=== PATIENT | male | born 1980 | race American Indian/Alaskan Native ===

== ENCOUNTER 2021-10-03 09:13 | Outpatient (CLI) | payer OTHER ==
--- NOTE | 2021-10-03 11:35 | XRay Report ---
CHEST 2 VIEWS INDICATION / CLINICAL INFORMATION: Dyspnea. COMPARISON: None available. FINDINGS: SUPPORT DEVICES: None. HEART / MEDIASTINUM: The heart size is normal. There is mild prominence of the main pulmonary artery and both central pulmonary arteries on the PA view without definite abnormality on the lateral view. The peripheral pulmonary vasculature is normal. LUNGS / PLEURA: No significant pulmonary or pleural abnormality. No pneumothorax. ADDITIONAL FINDINGS: No significant additional findings. IMPRESSION: Mild nonspecific prominence of the central pulmonary arteries raises the possibility of p ulmonary arterial hypertension. Signer Name: Nahun Collins MD Signed: 10/03/2021 11:30 AM Workstation Name: [id number]
== END 2021-10-03 09:14 | disposition home or self-care (01) ==
LOC: XRAY 09:13
PROVIDERS: ATTEND Internal Medicine Hematology & Oncology
DX: I27.20 Pulmonary hypertension, unspecified (principal); R06.00 Dyspnea, unspecified
CPT/HCPCS: 71046

== ENCOUNTER 2021-12-26 10:15 | Outpatient (CLI) | payer OTHER ==
--- NOTE | 2021-12-26 11:14 | XRay Report ---
CHEST 2 VIEWS INDICATION: HYPERTENSION/PUNEMONIA. COMPARISON: 10/03/2021 FINDINGS: Support devices: None. Heart: Within normal limits. Slightly prominent central pulmonary arteries are again noted. Lungs/pleura: No acute air space or interstitial disease. No pleural abnormality or pneumothorax. Additional findings: None. IMPRESSION: No acute findings. No change since 10/03/2021. Signer Name: Mele Brewster Jr, MD Signed: 12/26/2021 11:10 AM Workstation Name: [id number]
== END 2021-12-26 10:16 | disposition home or self-care (01) ==
LOC: XRAY 10:15
PROVIDERS: ATTEND Internal Medicine Hematology & Oncology
DX: J18.9 Pneumonia, unspecified organism (principal); I10 Essential (primary) hypertension
CPT/HCPCS: 71046

== ENCOUNTER 2022-01-17 11:00 | Outpatient (CLI) | payer OTHER | END 2022-01-18 11:00 | disposition home or self-care (01) | LOC: SLR 11:00 | PROVIDERS: ATTEND Internal Medicine | DX: G47.33 Obstructive sleep apnea (adult) (pediatric) (principal); R40.0 Somnolence; I10 Essential (primary) hypertension; E66.9 Obesity, unspecified | CPT/HCPCS: G0399 ==

== ENCOUNTER → 2022-03-19 | Outpatient (CLI) | payer OTHER | END | disposition home or self-care (01) | LOC: SLR 11:00 | PROVIDERS: ATTEND Internal Medicine | DX: G47.33 Obstructive sleep apnea (adult) (pediatric) (principal) | CPT/HCPCS: 95811 ==

== ENCOUNTER 2022-05-15 08:17 | Outpatient (CLI) | payer OTHER ==
[2022-05-15 09:42] LABS: Blood Urea Nitrogen 19 mg/dL (9-20)
--- NOTE | 2022-05-15 10:34 | Cat Scan Report ---
CTA CHEST WITH CONTRAST INDICATION / CLINICAL INFORMATION: I27.81 I26.99. Abnormal echocardiogram. Cor pulmonale TECHNIQUE: Axial CT images were obtained through the chest after injection of 100 cc of Omnipaque 350 IV contrast. 3 plane MIP and/or 3D reconstructions were produced. All CT scans at this location are performed using CT dose reduction for ALARA by means of automated exposure control. COMPARISON: None available. FINDINGS: PULMONARY EMBOLUS: A small occlusive pulmonary embolus is identified in a segmental and subsegmental arteries leading to the posterior left lower lobe. A small nonocclusive pulmonary embolus is identifi ed in an interlobar artery leading to the right lower lobe. No additional pulmonary emboli are detect ed. The main pulmonary artery is dilated up to 4.4 cm in diameter. The right atrium and right ventric le are dilated consistent with right heart strain. THORACIC AORTA: The thoracic aorta is small in size. The ascending aorta measures 2.6 cm in diameter. The descending thoracic aorta measures 2.1 cm in diameter. No evidence for aneurysm, atherosclerotic disease or dissection. HEART: There is mild cardiomegaly. Right atrial and right ventricular dilatation is again noted. CORONARY ARTERY CALCIFICATION: Absent -- None. MEDIASTINUM / JEROME: No significant abnormality. PLEURA: No pleural effusion. No pneumothorax. LUNGS: Mild groundglass infiltration is identified in the lower lobes and left perihilar region which probably represents mild congestive changes. There is no evidence for consolidation or mass. No inte rstitial lung disease. ADDITIONAL FINDINGS: None. UPPER ABDOMEN: No acute findings. SKELETAL STRUCTURES: No significant osseous abnormality. IMPRESSION: 1. Positive for small bilateral pulmonary emboli as described. Right heart strain is suspected. The m ain pulmonary artery is dilated up to 4.4 cm. 2. Mild bilateral groundglass infiltrates likely representing congestive changes. 3. Mild cardiomegaly. CRITICAL RESULT: Time of Discovery (CONGREGATIONAL CARE PASTOR/CDT): 0855 hours Time of Communication (CONGREGATIONAL CARE PASTOR/CDT): 0907 hours Licensed Practitioner Receiving Report: HILARIO Kramer Read-Back Performed: Yes. The patient was sent to the emergency department for further evaluation. Signer Name: Mele Brewster Jr, MD Signed: 05/15/2022 10:30 AM Workstation Name: [id number]
== END 2022-05-15 08:18 | disposition home or self-care (01) ==
LOC: CT 08:17
PROVIDERS: ATTEND Internal Medicine
DX: I51.7 Cardiomegaly (principal); R91.8 Other nonspecific abnormal finding of lung field; I27.81 Cor pulmonale (chronic); I26.99 Other pulmonary embolism without acute cor pulmonale
CPT/HCPCS: 36415; 71275; 82565; 84520; Q9967

== ENCOUNTER 2022-05-15 10:24 | Emergency (ER) | payer OTHER ==
[2022-05-15 11:20] LABS: Basophils # (Auto) 0.1 K/mm3 (0.0-0.1); Basophils % (Auto) 0.7 % (0.0-1.8); Eosinophils # (Auto) 0.3 K/mm3 (0.0-0.4); Eosinophils % (Auto) 4.4 % (0.0-4.3); Hematocrit 50.7 % (35.5-45.6); Hemoglobin 15.9 gm/dl (11.8-15.2); Lymphocytes # (Auto) 1.3 K/mm3 (1.2-5.4); Lymphocytes % (Auto) 17.5 % (13.4-35.0); Mean Corpuscular HGB Conc 31 % (32-34); Monocytes # (Auto) 0.6 K/mm3 (0.0-0.8); Monocytes % (Auto) 8.3 % (0.0-7.3); Platelet Count 257 K/mm3 (140-440); Red Cell Distribution Width 18.1 % (13.2-15.2)
[2022-05-15 11:22] LABS: Mean Corpuscular Volume 69 fl (84-94)
[2022-05-15 11:30] LABS: INR 1.02 (0.87-1.13)
[2022-05-15 11:45] LABS: Alanine Aminotransferase 48 units/L (7-56); Albumin 4.3 g/dL (3.9-5); BUN/Creatinine Ratio 13; Blood Urea Nitrogen 19 mg/dL (9-20); Calcium 9.6 mg/dL (8.4-10.2); Hemolysis Index 12
--- NOTE | 2022-05-15 12:05 | XRay Report ---
CHEST 2 VIEWS INDICATION: Chest Pain. COMPARISON: 12/26/2021 FINDINGS: Support devices: None. Heart: Within normal limits. Prominence of the maddy is unchanged greater on the right. Lungs/Pleura: No acute air space or interstitial disease. No significant pleural effusion. IMPRESSION: Stable chest. Signer Name: Jeramie Bonilla MD Signed: 05/15/2022 11:59 AM Workstation Name: [id number]
--- NOTE | 2022-05-15 12:28 | Consultation ---
History of Present Illness - Reason for Consult Consult date: 05/15/22 - History of Present Illness Patient with a history of hypertension and sleep apnea who presents with mild shortness of breath and chest pain who presented to his primary care physician's office. He subsequently underwent diagnostic work-up: A with CT of the chest which demonstrates that he has right ventricular enlargement, pulmonary outflow tract enlargement and a small subsegmental pulmonary embolism in the right. Patient admits to being being diagnosed in high school with what he remembers as having "thick blood". Patient is not on any medication. Review of his prior chest x-rays demonstrates significant prominence of his pulmonary vasculature. At present, the patient is resting comfortably and breathing easily on room air Past History Past Medical History: hypertension, other (Sleep apnea) Social history: no significant social history Family history: hypertension, other (Father-PE) Medications and Allergies Allergies Allergy/AdvReac Type Severity Reaction Status Date / Time No Known Allergies Allergy Verified 05/15/22 11:36 Home Medications Medication Instructions Recorded Confirmed Last Taken Type lisinopriL [Zestril] 10 mg PO QDAY 10/16/13 05/15/22 1 Day Ago History ~05/14/22 Bumetanide [Bumetanide 2 mg tab] 2 mg PO DAILY 05/15/22 05/15/22 1 Day Ago History ~05/14/22 Pantoprazole [Protonix] 40 mg PO BID 05/15/22 05/15/22 1 Day Ago History ~05/14/22 amLODIPine 40 mg PO DAILY 05/15/22 05/15/22 1 Day Ago History ~05/14/22 Review of Systems All systems: negative Exam - Constitutional Vitals: Temp Pulse Resp BP Pulse Ox 97.9 F 99 H 18 129/82 99 05/15/22 11:08 05/15/22 11:08 05/15/22 11:08 05/15/22 11:08 05/15/22 11:08 General appearance: Present: no acute distress - EENT Eyes: Present: EOM intact ENT: hearing intact - Neck Neck: Present: supple, normal ROM - Respiratory Respiratory effort: normal - Abdominal General gastrointestinal: Present: deferred Male genitourinary: Present: deferred - Rectal Rectal Exam: deferred - Psychiatric Psychiatric: appropriate mood/affect, cooperative Results - Labs CBC & Chem 7: 05/15/22 Unknown 05/15/22 Unknown Labs: Abnormal lab results 05/15/22 05/15/22 Range/Units Unknown Unknown RBC 7.40 H (3.65-5.03) M/mm3 Hgb 15.9 H (11.8-15.2) gm/dl Hct 50.7 H (35.5-45.6) % MCV 69 L (84-94) fl MCH 22 L (28-32) pg MCHC 31 L (32-34) % RDW 18.1 H (13.2-15.2) % [place] % (Auto) 8.3 H (0.0-7.3) % Eos % (Auto) 4.4 H (0.0-4.3) % Sodium 136 L (137-145) mmol/L Creatinine 1.5 H (0.8-1.3) mg/dL Glucose 101 H (75-100) mg/dL NT-Pro-B Natriuret Pep 1055 H (0-450) pg/mL - Imaging and Cardiology Chest x-ray: image reviewed CT scan - chest: image reviewed Assessment and Plan Patient with pulmonary hypertension and a small PE in his right lower lobe subsegmentally. Patient was started on Eliquis and will need to continue at the loading dose of 10 mg twice daily. He will follow-up with us in the outpatient setting next week on Thursday he will be contacted with the appointment. Would suspect that the patient has either hypercoagulable state or some sort of vascular abnormality causing recurrent subclinical PE leading to prominence of his pulmonary vasculature. He would also benefit from referral to hematology oncology for hypercoagulable work-up. This can be done in the outpatient setting. Patient will also be evaluated by cardiology. From a vascular point of view, the patient will not need to be admitted.
--- NOTE | 2022-05-15 13:00 | Emergency Department Report ---
ED Chest Pain HPI - General Chief Complaint: Chest Pain Stated Complaint: CHEST PAIN Time Seen by Provider: 05/15/22 10:54 Source: patient Mode of arrival: Ambulatory Limitations: No Limitations - History of Present Illness Initial Comments: pt presents from dr Bradford office with posKacey YARBROUGH MD Complaint: chest pain -: days(s) Pain Radiation: none Severity: moderate Severity scale (0 -10): 0 Consistency: intermittent re: dyspnea - Related Data Home Medications Medication Instructions Recorded Confirmed Last Taken lisinopriL [Zestril] 10 mg PO QDAY 10/16/13 05/15/22 1 Day Ago ~05/14/22 Bumetanide [Bumetanide 2 mg tab] 2 mg PO DAILY 05/15/22 05/15/22 1 Day Ago ~05/14/22 Pantoprazole [Protonix] 40 mg PO BID 05/15/22 05/15/22 1 Day Ago ~05/14/22 amLODIPine 40 mg PO DAILY 05/15/22 05/15/22 1 Day Ago ~05/14/22 Allergies Allergy/AdvReac Type Severity Reaction Status Date / Time No Known Allergies Allergy Verified 05/15/22 11:36 Heart Score - HEART Score History: Slightly suspicious EKG: Normal Age: < 45 Risk factors: 1-2 risk factors Troponin: < normal limit HEART Score: 1 - EKG Read Time Time EKG Completed: 11:55 EKG Read Time: 11:55 - Critical Actions Critical Actions: 0-3 pts:0.9-1.7%risk of adverse cardiac event.Candidate for discharge ED Review of Systems ROS: Stated complaint: CHEST PAIN Other details as noted in HPI Constitutional: denies: chills, fever Eyes: denies: eye pain, eye discharge, vision change ENT: denies: ear pain, throat pain Respiratory: denies: cough, shortness of breath, wheezing Cardiovascular: denies: chest pain, palpitations Endocrine: no symptoms reported Gastrointestinal: denies: abdominal pain, nausea, diarrhea Genitourinary: denies: urgency, dysuria Musculoskeletal: denies: back pain, joint swelling, arthralgia Skin: denies: rash, lesions Neurological: denies: headache, weakness, paresthesias Psychiatric: denies: anxiety, depression Hematological/Lymphatic: denies: easy bleeding, easy bruising ED Past Medical Hx - Past Medical History Previous Medical History?: Yes Hx Hypertension: Yes Hx GERD: Yes Hx Asthma: Yes Additional medical history: sent to ED today for possible double PEs seen on CT scan this morning. unknown"thick blood" still having testing done for complete diagnosis - Surgical History Past Surgical History?: Yes Additional Surgical History: left leg ortho. kidney biopsy when he was a child - Social History Smoking Status: Never Smoker Substance Use Type: None - Medications Home Medications: Home Medications Medication Instructions Recorded Confirmed Last Taken Type lisinopriL [Zestril] 10 mg PO QDAY 10/16/13 05/15/22 1 Day Ago History ~05/14/22 Bumetanide [Bumetanide 2 mg tab] 2 mg PO DAILY 05/15/22 05/15/22 1 Day Ago History ~05/14/22 Pantoprazole [Protonix] 40 mg PO BID 05/15/22 05/15/22 1 Day Ago History ~05/14/22 amLODIPine 40 mg PO DAILY 05/15/22 05/15/22 1 Day Ago History ~05/14/22 ED Physical Exam - General Limitations: No Limitations General appearance: alert, in no apparent distress - Head Head exam: Present: atraumatic, normocephalic - Eye Eye exam: Present: normal appearance - ENT ENT exam: Present: mucous membranes moist - Neck Neck exam: Present: normal inspection - Respiratory Respiratory exam: Present: normal lung sounds bilaterally. Absent: respiratory distress - Cardiovascular Cardiovascular Exam: Present: regular rate, normal rhythm. Absent: systolic murmur, diastolic murmur, rubs, gallop - GI/Abdominal GI/Abdominal exam: Present: soft, normal bowel sounds - Rectal Rectal exam: Present: deferred - Extremities Exam Extremities exam: Present: normal inspection - Back Exam Back exam: Present: normal inspection - Neurological Exam Neurological exam: Present: alert, oriented X3 - Psychiatric Psychiatric exam: Present: normal affect, normal mood - Skin Skin exam: Present: warm, dry, intact, normal color. Absent: rash ED Course Vital Signs 05/15/22 05/15/22 05/15/22 09:49 10:30 10:47 Temperature 97.8 F Pulse Rate 114 H Respiratory 16 Rate Blood Pressure 150/96 Blood Pressure 135/86 [Left] O2 Sat by Pulse 97 94 Oximetry 05/15/22 05/15/22 05/15/22 11:01 11:08 11:15 Temperature 97.9 F Pulse Rate 109 H 99 H 100 H Respiratory 24 18 22 Rate Blood Pressure 150/96 129/82 150/96 Blood Pressure [Left] O2 Sat by Pulse 96 99 96 Oximetry 05/15/22 05/15/22 05/15/22 11:31 11:45 12:01 Temperature Pulse Rate 102 H 105 H 100 H Respiratory 26 H 18 25 H Rate Blood Pressure 150/96 133/78 131/90 Blood Pressure [Left] O2 Sat by Pulse 94 94 97 Oximetry 05/15/22 05/15/22 05/15/22 12:15 12:31 12:45 Temperature Pulse Rate 101 H 96 H 94 H Respiratory 15 16 23 Rate Blood Pressure 131/90 131/90 131/90 Blood Pressure [Left] O2 Sat by Pulse 97 96 91 Oximetry MICHAEL score - Michael Score Age > 65: (0) No Aspirin use within the Past 7 Days: (1) Yes 2 or more Angina events in past 24 hrs: (0) No Known CAD with more than 50% Stenosis: (0) No Elevated Cardiac Markers: (0) No ST Deviation Greater than 0.5mm: (0) No ED Medical Decision Making - Lab Data Result diagrams: 05/15/22 Unknown 05/15/22 Unknown - EKG Data -: EKG Interpreted by Me EKG shows normal: sinus rhythm - EKG Data Interpretation: nonspecific ST-T wave sweetie - Radiology Data Radiology results: report reviewed, image reviewed - Medical Decision Making vss no distress, no hypoxia, dr mcgrath came in and will see him OP, pt is negro chacon on DOACs Critical care attestation.: If time is entered above; I have spent that time in minutes in the direct care of this critically ill patient, excluding procedure time. ED Disposition Clinical Impression: Pulmonary embolism Disposition: HOME / SELF CARE / HOMELESS Is pt being admited?: No Does the pt Need Aspirin: No Condition: Stable Instructions: Pulmonary Embolism Referrals: STEVE BRUNSON MD [Primary Care Provider] - 3-5 Days LYLE ROMO MD [Staff Physician] - 3-5 Days
[2022-05-15 13:25] VITALS: BP 136/71
--- NOTE | 2022-05-16 11:26 | Electrocardiograph Report ---
[facility] Test Date: 2022-05-15 Test Time: 11:55:02 Pat Name: CATARINO SCHILLING Department: Room: Gender: M Freedom Of Information Officer: KIARRA : 1980 Requested By: LAMONT DOMINIQUE Order Number: [id number] Reading MD: Selvin Girard Measurements Intervals [place] Rate: 99 P: 74 OR: 170 QRS: 143 QRSD: 111 T: -2 QT: 383 QTc: 491 Interpretive Statements Sinus rhythm Probable left atrial enlargement Probable RVH w/ secondary repol abnormality No previous ECG available for comparison Electronically Signed On 05-16-2022 11:26:13 EDT by Selvin Girard
== END 2022-05-15 13:45 | disposition home or self-care (01) ==
LOC: ED 10:24
DX: I26.09 Other pulmonary embolism with acute cor pulmonale (principal); I10 Essential (primary) hypertension; J45.909 Unspecified asthma, uncomplicated
CPT/HCPCS: 36415; 71046; 80053; 83690; 83880; 84484; 85025; 85610; 93005; 99284